=== PATIENT | male | born 1950 | race Caucasian/White ===

== ENCOUNTER → 2016-11-29 | Outpatient (CLI) | payer MEDICARE, OTHER | END | disposition home or self-care (01) | LOC: CFH 13:27 | PROVIDERS: ATTEND Physician Assistant | DX: M51.36 Other intervertebral disc degeneration, lumbar region (principal); M51.27 Other intervertebral disc displacement, lumbosacral region; M48.06 Spinal stenosis, lumbar region; G62.9 Polyneuropathy, unspecified; G89.29 Other chronic pain | CPT/HCPCS: 72148 ==

== ENCOUNTER → 2017-05-14 | Outpatient (CLI) | payer MEDICARE, OTHER | END | disposition home or self-care (01) | LOC: CFH 09:30 | PROVIDERS: ATTEND Internal Medicine Hematology & Oncology | DX: M48.32 Traumatic spondylopathy, cervical region (principal); M48.36 Traumatic spondylopathy, lumbar region; M41.86 Other forms of scoliosis, lumbar region | CPT/HCPCS: 77074 ==